=== PATIENT | female | born 1985 | race Caucasian/White ===

== ENCOUNTER 2017-08-25 08:00 | Day surgery (SDC) | payer BC ==
[2017-08-24 08:49] VITALS: BMI 40.7
[2017-08-25] MEDS ORDERED: Bupivacaine HCl 0.5% PF (10 ml) Inj ONE (08:44)
[2017-08-25] MEDS ORDERED: cefOXitin IV 1 gm in Dextrose 2 GM/100 ML BAG IVPB ONE (08:44)
[2017-08-25] MEDS ORDERED: Midazolam 2 MG/2 ML VIAL ONE (10:01)
[2017-08-25] MEDS ORDERED: Propofol 10 mg/ml Inj (20 ML) ONE (10:01)
[2017-08-25] MEDS ORDERED: Lidocaine Hydrochloride 5 ML INJ ONE (10:02)
[2017-08-25] MEDS ORDERED: Rocuronium 10 mg/ml (5 ml) ONE (10:03)
[2017-08-25] MEDS ORDERED: Sodium Chloride 0.9% 1,000 ML IV ONE ×2 (10:10→11:24)
[2017-08-25] MEDS ORDERED: Succinylcholine Chloride 20 mg/ml Syr (5 ml) IV ONE (10:14)
[2017-08-25] MEDS ORDERED: Neostigmine Methylsulfate 3mg/3ml Syringe IV ONE (11:11)
[2017-08-25] MEDS ORDERED: Dexamethasone 4 mg/1 ml IVP PRN (11:35)
[2017-08-25 14:50] VITALS: RESP 16; TEMP 97.4
[2017-08-25 17:02] VITALS: BP 115/76; PULSE 98; O2SAT 100
--- NOTE | 2017-08-25 23:08 | OP ---
PROCEDURE DATE: PREOPERATIVE DIAGNOSES: Ovarian cyst, endometriosis. POSTOPERATIVE DIAGNOSES: Ovarian cyst, endometriosis. PROCEDURE: Laparoscopy, left ovarian cystectomy, and dilation and curettage of the uterus. SURGEON: Monica Oneill MD. NURSE AIDE: Conrad Sunshine MD. FINDINGS: Left ovarian cyst, hemorrhagic, about 7 cm in diameter. Normal right ovary. Bilateral peritubal and periovarian adhesions. Extensive anterior and posterior cul-de-sac and endometriotic implants. ESTIMATED BLOOD LOSS: 2 mL. COMPLICATIONS: Nil. DESCRIPTION OF PROCEDURE: After the risks, benefits, and alternatives of the planned procedures, including, but not limited to infection, hemorrhage, deep vein thrombosis, atelectasis, pneumonia, pulmonary embolism, damage to the bladder, damage to the ureter, renal insufficiency, renal failure, wound infection, wound dehiscence, incisional hernia, keloid formation, damage to large and small intestines, damage to the inferior vena cava and the aorta requiring extensive repair, anesthesia complications, electrolyte imbalance, possibility of , fluid overload, cerebral edema, air embolism, and other complications that were discussed, but are not listed above, have been explained to the patient and all her questions answered, informed consent was obtained. The patient was taken to the operating room in a stable condition. Under suitable level of general anesthesia, she was prepped and draped in a sterile fashion after having been placed in a dorsal lithotomy position. López catheter was inserted. Examination under anesthesia revealed a normal-sized uterus, anteverted with no adnexal masses. A weighted speculum was inserted into the vagina. The anterior lip of the cervix was grasped using a single-tooth tenaculum and endocervical curettage was performed and scant tissue was obtained. Uterus was sounded to 7 cm. The cervix was dilated to a #18 Hanks dilator and endocervical curettage was performed and scant tissue was obtained. A HUMI catheter was inserted into the cervix and insufflated into place. Through a left upper quadrant 5-mm incision, a 5-mm trocar and sleeve were inserted. A pneumoperitoneum of 3 liters was created. A laparoscope was then inserted. A 5-mm puncture site was made into the right iliac fossa. An incision was made over the left ovarian cyst and the cyst lining was enucleated and submitted for pathology. The excision site was then fulgurated using cautery with good hemostasis. Fluid from the cyst was drained and submitted for cytology. It was chocolate in color and consistency. The right peritubal and periovarian adhesions were then lysed and anterior and posterior cul-de-sac and endometriotic implants were also fulgurated. At the end of the procedure, the peritoneal cavity was then irrigated using copious amounts of saline. The saline was evacuated. The suprapubic and right iliac fossa sleeves were removed under laparoscopic guidance. Abdomen was inflated with carbon dioxide and the left upper quadrant sleeve was removed under laparoscopic guidance. The skin incisions were then closed using 4-0 Monocryl. Estimated blood loss for the procedure was less than 1 mL. Sponge, needle, and instrument counts were correct x2. There were no complications. Monica Oneill MD
== END 2017-08-25 17:02 | disposition home or self-care (01) ==
LOC: C.SDS 08:00
PROVIDERS: ATTEND Obstetrics & Gynecology Reproductive Endocrinology
DX: N83.202 Unspecified ovarian cyst, left side (principal); N80.9 Endometriosis, unspecified; N94.6 Dysmenorrhea, unspecified; N92.0 Excessive and frequent menstruation with regular cycle
CPT/HCPCS: 36415; 58662; 86850; 86900; 88104; 88304; 88305; C2615; J0694; J1100; J1170; J1885; J2250; J2405; J2704; J2710; J3010; J7040